=== PATIENT | male | born 1980 | race African-American/Black ===

== ENCOUNTER 2025-02-24 11:30 | Inpatient (IN) | payer OTHER ==
[2025-02-24 13:46] LABS: ABSOLUTE IMMATURE GRANULOCYTES 0.04 x10^3/uL (0.0-0.031); BASOPHILS # 0.02 x10^3/uL (0.01-0.08); EOSINOPHIL % 0.6 % (0.8-7.0); EOSINOPHILS # 0.06 x10^3/uL (0.04-0.54); HEMATOCRIT 40.9 % (40.1-51.0); HEMOGLOBIN 13.1 g/dL (13.7-17.5); MEAN CELL VOLUME 85.4 fl (79.0-92.2); MEAN PLT VOLUME 8.9 fl (9.4-12.4); MONOCYTE # 0.81 x10^3/uL (0.30-0.82); MONOCYTE % 7.9 % (5.3-12.2); PLATELET COUNT 345 x10^3/uL (163-337)
[2025-02-24 13:47] LABS: PH,URINE 7.5 (5.0-8.0); URINE APPEARANCE CLEAR; URINE BILIRUBIN NEGATIVE (NEGATIVE); URINE COLOR YELLOW; URINE GLUCOSE (UA) NEGATIVE (NEGATIVE); URINE KETONE NEGATIVE (NEGATIVE); URINE LEUK ESTERASE NEGATIVE (NEGATIVE); URINE NITRITE NEGATIVE (NEGATIVE); URINE PROTEIN NEGATIVE (NEGATIVE)
[2025-02-24] MEDS ORDERED: LABETALOL HCL 20 MG/4 ML VIAL ONE (13:58)
[2025-02-24] MEDS: LABETALOL HCL 20 MG/4 ML VIAL IVPUSH ONE (14:03)
[2025-02-24 14:14] LABS: POTASSIUM 4.4 mmol/L (3.5-5.1)
[2025-02-24 14:15] LABS: ALBUMIN 3.5 g/dl (3.4-5.0); BLOOD UREA NITROGEN 11.9 mg/dL (7-18); CALCIUM 9.6 mg/dL (8.5-10.1)
[2025-02-24 14:20] LABS: BILIRUBIN,TOTAL 0.6 mg/dL (0.2-1); TOT PROT 7.6 g/dl (6.4-8.2)
[2025-02-24] MEDS ORDERED: ASPIRIN 81 MG CHEWABLE TABLETS ONE (14:46)
[2025-02-24] MEDS: ATORVASTATIN CA 80 MG TABLET (FP) PO ONE (14:53)
[2025-02-24] MEDS: ASPIRIN 81 MG CHEWABLE TABLETS PO ONE (14:53)
[2025-02-24] MEDS: ASPIRIN 325 MG TABLET PO ONE (14:53)
[2025-02-24] MEDS: SODIUM CHLORIDE 0.9% 500 ML INFUS.BAG IV ONE (16:00)
[2025-02-24] MEDS: amLODIPine BESYLATE 5 MG TABLET (FP) PO ONE (16:45)
[2025-02-24] MEDS ORDERED: amLODIPine BESYLATE 5 MG TABLET (FP) PO SCH (17:25)
[2025-02-24] MEDS: CARVEDILOL 6.25 MG TABLET (FP) PO ONE (17:30)
[2025-02-24] MEDS: TRIMETHOBENZAMIDE HCL 200MG/2ML INJ IM PRN (17:33)
[2025-02-24 18:27] VITALS: BMI 37.2
[2025-02-24] MEDS: LABETALOL HCL 20 MG/4 ML VIAL IVPUSH PRN (20:05)
[2025-02-24] MEDS: CARVEDILOL 6.25 MG TABLET (FP) PO SCH (21:21)
[2025-02-24] MEDS: hydrOXYzine PAMOATE 25 MG CAPSULE (FP) PO ONE (21:25)
[2025-02-24] MEDS ORDERED: CARVEDILOL 6.25 MG TABLET (FP) PO SCH (22:00)
[2025-02-24] MEDS: hydrALAZINE HCL 20 MG/ML VIAL IVPUSH ONE (22:34)
[2025-02-25 07:10] LABS: HEMOGLOBIN 14.7 g/dL (13.7-17.5); MEAN CELL VOLUME 83.9 fl (79.0-92.2); MEAN PLT VOLUME 8.8 fl (9.4-12.4); PLATELET COUNT 350 x10^3/uL (163-337)
[2025-02-25 07:21] LABS: POTASSIUM 3.9 mmol/L (3.5-5.1)
[2025-02-25 07:25] LABS: ALBUMIN 3.7 g/dl (3.4-5.0); BLOOD UREA NITROGEN 9.6 mg/dL (7-18); CALCIUM 9.6 mg/dL (8.5-10.1); MAGNESIUM 1.8 mg/dL (1.8-2.4)
[2025-02-25 07:28] LABS: CREATININE 1.1 mg/dL (0.55-1.3); PHOSPHOROUS 2.8 mg/dL (2.5-4.9)
[2025-02-25] MEDS ORDERED: cloNIDine HCL 0.1 MG TABLET PO PRN (07:28)
[2025-02-25 07:29] LABS: BILIRUBIN,TOTAL 0.7 mg/dL (0.2-1)
[2025-02-25] MEDS: ASPIRIN COATED 81 MG TABLET.EC PO SCH (09:31)
[2025-02-25] MEDS: CARVEDILOL 12.5 MG TABLET (FP) PO SCH (09:32)
[2025-02-25] MEDS: amLODIPine BESYLATE 10 MG TABLET (FP) PO ONE (09:32)
[2025-02-25] MEDS: methaDONE HCL 10 MG TABLET PO ONE (09:32)
[2025-02-25] MEDS: ENOXAPARIN NA (PORCINE) 40 MG/0.4 ML DISP.SYRIN SQ SCH (09:34)
[2025-02-25] MEDS ORDERED: amLODIPine BESYLATE 10 MG TABLET (FP) PO SCH (10:00)
[2025-02-25] MEDS ORDERED: chlordiazePOXIDE 5 MG CAPSULE PO PRN (10:47)
[2025-02-25] MEDS: NIFEdipine E.R 60 MG TABLET PO SCH (15:54)
[2025-02-25] MEDS: LABETALOL HCL 20 MG/4 ML VIAL IVPUSH PRN (17:11)
[2025-02-25 19:17] VITALS: RESP 18
[2025-02-26 06:20] VITALS: BP 136/94; PULSE 98; TEMP 98.6
[2025-02-26 07:47] LABS: POTASSIUM 4.1 mmol/L (3.5-5.1)
[2025-02-26 07:57] LABS: CALCIUM 9.9 mg/dL (8.5-10.1)
[2025-02-26 07:58] LABS: BLOOD UREA NITROGEN 16.6 mg/dL (7-18); MAGNESIUM 1.9 mg/dL (1.8-2.4)
[2025-02-26 08:01] LABS: CREATININE 1.2 mg/dL (0.55-1.3); PHOSPHOROUS 3.8 mg/dL (2.5-4.9)
[2025-02-26] MEDS ORDERED: amLODIPine BESYLATE 10 MG TABLET (FP) PO SCH (10:00)
[2025-02-26] MEDS ORDERED: LOSARTAN POTASSIUM 50 MG TABLET PO SCH (10:00)
[2025-02-26] MEDS: LOSARTAN POTASSIUM 50 MG TABLET PO SCH (10:32)
[2025-02-27] MEDS ORDERED: methaDONE HCL 10 MG TABLET PO ONE (10:00)
== END 2025-02-26 11:41 | disposition other institution (70) | DRG 199 ==
LOC: JER 11:30 → JERBED 14:33 → J4W 16:59
PROVIDERS: ADMIT Internal Medicine; ATTEND Psychiatry & Neurology Pain Medicine
DX: I16.1 Hypertensive emergency (principal); I24.89 Other forms of acute ischemic heart disease; E11.9 Type 2 diabetes mellitus without complications; E78.5 Hyperlipidemia, unspecified; F10.939 Alcohol use, unspecified with withdrawal, unspecified; F11.23 Opioid dependence with withdrawal; F12.90 Cannabis use, unspecified, uncomplicated; F14.23 Cocaine dependence with withdrawal; F17.210 Nicotine dependence, cigarettes, uncomplicated; R11.2 Nausea with vomiting, unspecified
CPT/HCPCS: 36415; 70450-TC; 71045-TC-FY; 80048; 80053; 80061; 81003; 82962; 83036; 83690; 83735; 84100; 84443; 84484; 85025; 85027; 87086; 93005; 93010; 93306-TC; 99285-25

== ENCOUNTER 2025-02-26 12:07 | Inpatient (IN) | payer OTHER ==
[2025-02-26 13:50] VITALS: BMI 39.4
[2025-02-26] MEDS ORDERED: ONDANSETRON *ODT* 4 MG TABLET SL PRN (13:52)
[2025-02-26] MEDS ORDERED: POLYETHYLENE GLYCOL (HEALTHYLAX) 3350 17 GM PACKET PO PRN (13:52)
[2025-02-26] MEDS ORDERED: NICOTINE POLACRILEX 2 MG LOZENGE BC PRN (13:52)
[2025-02-26] MEDS ORDERED: NICOTINE POLACRILEX 2 MG GUM BUC PRN (13:52)
[2025-02-26] MEDS ORDERED: BENZOCAINE/MENTHOL (CHLORASEPTIC ) LOZENGE MM PRN (13:52)
[2025-02-26] MEDS ORDERED: DICYCLOMINE HCL 10 MG CAPSULE PO PRN (13:52)
[2025-02-26] MEDS ORDERED: LOPERAMIDE HCL 2 MG CAPSULE PO PRN (13:52)
[2025-02-26] MEDS ORDERED: IBUPROFEN 400 MG TABLET (FP) PO PRN (13:52)
[2025-02-26] MEDS ORDERED: BENZONATATE 200 MG CAPSULE PO PRN (13:52)
[2025-02-26] MEDS ORDERED: IBUPROFEN 600 MG TABLET (FP) PO PRN (13:52)
[2025-02-26] MEDS ORDERED: MAG HYDROX/AL HYDROX/SIMETH 30 ML UNIT-DOSE CUP PO PRN (13:52)
[2025-02-26] MEDS ORDERED: MAGNESIUM HYDROX 2400MG/30ML ORAL SUSPENSION 30 ML CUP PO PRN (13:52)
[2025-02-26] MEDS ORDERED: ACETAMINOPHEN 325 MG TABLET (FP) PO PRN (13:52)
[2025-02-26] MEDS ORDERED: NALOXONE (NARCAN) HCL 4 MG/0.1 ML SPRAY NS PRN (13:52)
[2025-02-26] MEDS ORDERED: BISMUTH SUBSALICYLATE 524 MG/30 ML PO PRN (13:52)
[2025-02-26] MEDS ORDERED: guaiFENesin 600 MG TABLET.ER (FP) PO PRN (13:52)
[2025-02-26] MEDS: INSULIN ASPART SLIDING SCALE (NOVOLOG) 1 VIAL SQ SCH (16:58)
[2025-02-26] MEDS: cloNIDine HCL 0.1 MG TABLET PO PRN (21:39)
[2025-02-26] MEDS: MELATONIN 5 MG TABLETS PO SCH (21:42)
[2025-02-26] MEDS: METHOCARBAMOL 500 MG TABLET PO PRN (21:42)
[2025-02-26] MEDS: THIAMINE 100 MG TABLET PO SCH (21:42)
[2025-02-27] MEDS: methaDONE HCL 10 MG TABLET (FOR DETOX USE ONLY) PO ONE (10:03)
[2025-02-27] MEDS: PRENATAL VITAMINS W/ FOLIC ACID TABLET (FP) PO SCH (10:04)
[2025-02-27] MEDS: NIFEdipine E.R 60 MG TABLET PO SCH (10:04)
[2025-02-27] MEDS: LOSARTAN POTASSIUM 50 MG TABLET PO SCH (10:05)
[2025-02-27 13:06] VITALS: BP 138/81; PULSE 76; RESP 18; TEMP 97.3
== END 2025-02-27 16:07 | disposition home or self-care (01) | DRG 773 ==
LOC: YASAS 12:07 → Y3N 14:07
PROVIDERS: ADMIT Allergy & Immunology; ATTEND Allergy & Immunology
PROC: HZ2ZZZZ Detoxification Services for Substance Abuse Treatment (ICD-10-PCS; principal; 2025-02-26)
DX: F11.23 Opioid dependence with withdrawal (principal); F14.20 Cocaine dependence, uncomplicated; F12.20 Cannabis dependence, uncomplicated; F17.210 Nicotine dependence, cigarettes, uncomplicated; E78.5 Hyperlipidemia, unspecified; E11.9 Type 2 diabetes mellitus without complications; I10 Essential (primary) hypertension
CPT/HCPCS: 80305; 80307; 82962